=== PATIENT | female | born 1985 | race Caucasian/White ===

== ENCOUNTER 2022-06-19 08:55 | Inpatient (IN) | payer OTHER, SELFPAY ==
--- NOTE | 2022-06-12 12:17 | HP.PCM_ITS ---
History and Physical Date of Admission: 06/19/22 HPI: The patient is a 37 year old female presenting for pre-operative visit. She is scheduled for and bilateral salpingectomy, for 39 weeks and sterization request on 06/19/22. Procedure discussed along with risks, benefits and complications. Other alternatives discussed for management. Consent form signed? Yes. ? ? PAST MEDICAL HISTORY PAST MEDICAL HISTORY Diagnosis Date ? Abnormal glandular Papanicolaou smear of cervix ? ? Abn. Pap smear (cervix) ? Allergic rhinitis, cause unspecified ? ? Anemia ? ? Anesthesia complication 12/21/2011 ? Dysmenorrhea ? ? Esophageal reflux ? ? External hemorrhoids without mention of complication ? ? FRACTURE ? ? COLLARBONE, FALL AT 18 MONTHS ? History of pre-eclampsia in prior , currently ? ? Other specified disorder of gallbladder ? ? depression ? ? ? PAST SURGICAL HISTORY PAST SURGICAL HISTORY Procedure Laterality Date ? ADENOIDECTOMY PRIMARY <AGE 11 ? ? ? Adenoidectomy ? DELIVERY ONLY ? 04/14/11,08/02/12 ? , low transverse ? COLPOSCOPY CERVIX UPPER/ADJACENT VAGINA ? ? ? Colposcopy ? LAPAROSCOPY SURG CHOLECYSTECTOMY ? 01/03/08 ? MYRINGOTOMY ASPIR&/EUSTACHIAN TUBE NFLTJ ANES ? ? ? Myringotomy/tubes ? ? ? CURRENT MEDICATIONS Current Outpatient Medications Medication Sig Dispense Refill ? omeprazole (PRILOSEC) 20 mg capsule TAKE 1 CAPSULE BY MOUTH TWICE DAILY NEEDED 180 capsule 1 ? ferrous sulfate (IRON ORAL) Take by mouth. ? ? ? aspirin, enteric coated (ECOTRIN LOW STRENGTH) 81 mg EC tablet Take 1 tablet by mouth once daily. ? ? ? Qbrzbrsq-Vt-Yue-Fe-FA ( VITAMIN) tab Take 1 tablet by mouth. ? docusate sodium (COLACE ORAL) Take by mouth. ? ? ? No current facility-administered medications for this visit. ? ? ALLERGIES: Albuterol, Demerol [Meperidine (Pf)], and Seasonal [Other] ? PERSONAL HISTORY: SOCIAL HISTORY Social History ? Tobacco Use ? Smoking status: Never ? Smokeless tobacco: Never Vaping Use ? Vaping Use: Never used Substance Use Topics ? Alcohol use: Not Currently ? ? Comment: Occasionally ? Drug use: No ? FAMILY HISTORY: FAMILY HISTORY FAMILY HISTORY Problem Relation Age of Onset ? Lipids Mother ? ? Allergies Mother ? ? other (Sjoegren's) Mother ? ? Kidney Disease Mother ? ? Arthritis Mother ? ? other (anuerysm) Father ? ? 07/05, Cerebrel ? Allergies Brother ? ? Cancer Maternal Grandmother ? ? skin, colon, breast ? Stroke Maternal Grandmother ? ? Ischemic Heart Disease Maternal Grandfather ? ? Cancer Paternal Grandfather ? ? skin ? Hypertension Paternal Grandfather ? ? No Known Problems Son ? ? No Known Problems Son ? ? ? REVIEW OF SYMPTOMS: GENERAL: denies fevers or chills ENDOCRINOLOGY: has not been on steroids Cardiology : denies palpitations or chest pain Respiratory: denies SOB or cough Hematology: denies history of prolonged bleeding or easy bruising or VTE Allergy: Denies history of personal or family history of allergy to anesthesia ? PHYSICAL EXAMINATION: ? VITALS: Blood pressure 118/76, pulse 66, weight 181 lb (82.1 kg), last menstrual period 09/19/2021, SpO2 100 %, unknown if currently . ? GENERAL: The patient is well nourished, well hydrated in no acute distress. , The patient is oriented to time, place, and person. NECK: Supple. No lynphadenopathy, normal thyroid, no thyromegaly. LUNGS: Clear to auscultation bilaterally. no wheezes, rhonchi or rales HEART: Regular rate and rhythm, Normal heart sounds, and No murmurs or gallops ? IMPRESSION:Estimated Date of Delivery: 06/26/22 for repeat c/s and tubal ? PLAN: The risks/benefits/alternatives and personal involved for the planned c- section and tubal sterilization were reviewed with the patient. Her questions were answered to her satisfaction and she desires to proceed. Consent was signed. I reviewed with her postop instructions and expectations. ? ? I have reviewed and updated past medical and surgical history, medications and allergies
[2022-06-19] VITALS (17 sets, daily range): BP systolic 97–134; BP diastolic 53–88; PULSE 61–83; RESP 12–18; TEMP 36.3–37.2; O2SAT 95–98; BMI 31.8
[2022-06-19] MEDS: Lactated Ringers 1,000 ML 999 ML IV (09:30)
[2022-06-19] MEDS: Acetaminophen 500 MG Tablet 1000 MG PO ×3 (09:50→21:54)
[2022-06-19 09:56] LABS: Absolute Lymphocyte Count 1.91 X10^3/uL (0.83-4.51); Absolute Neutrophil Count 5.6 X10^3/uL (2.0-7.7); Basophil# 0.12 X10^3/uL; Basophil% 1.4 % (0-1); Eosinophil# 0.08 X10^3/uL; Eosinophils% 0.9 % (0-5); Hematocrit 33.6 % (37-47); Hemoglobin 11.1 g/dL (12.0-15.0); Lymphocyte # 1.91 X10^3/ul (0.83-4.51); Lymphocyte % 22.4 % (19-41); Mean Corpuscular Hgb 30.6 pg (27.0-32.0); Mean Corpuscular Volume 92.6 fL (81-99); Mean Platelet Vol. 10.9 fl (6.2-12.0); Monocyte# 0.59 X10^3/uL; Monocyte% 6.9 % (0-10); NRBC Flagged by Analyzer 0 % (0-5); Neutrophil # 5.56 X10^3/uL (2.7-7.7); Neutrophil % 65.1 % (47-70); Platelet Count 225 K/mm3 (150-450); RBC Distribution Width CV 12.9 % (11.6-14.6); RBC Distribution Width SD 43.5 fl (35.1-43.9); Red Blood Count 3.63 M/mm3 (4.2-5.4); White Blood Count 8.5 K/mm3 (4.4-11.0)
[2022-06-19] MEDS: Lactated Ringers 1,000 ML 150 ML IV ×2 (10:32→16:20)
[2022-06-19 10:36] LABS: Syphilis Antibodies Non-reactive
[2022-06-19] MEDS: Sodium Citrate/Citric Acid 30 ML UDC PO (11:21)
[2022-06-19] MEDS: Cefazolin 2 GM in 0.9% Normal Saline 100 ML IV (11:24)
--- NOTE | 2022-06-19 11:47 | EX.PCM.OBRPT ---
Assessment & Plan (1) 39 weeks gestation of : (2) Previous delivery affecting : (3) Sterilization: (4) Single live : Maternal Data Information Final BOB: [birth year] Gestational age: 39 Details Operative Information Date of Procedure: 06/19/22 Pre-Operative Diagnosis: previous c/s, sterilization request Post-Operative Diagnosis: same Classification: Scheduled Procedure Type: bilateral salpingectomy catering staff member #1: Charla Kamara catering staff member #2: Celia Carter MS3 Type of Anesthesia: Spinal Anesthesiologist: Jon Griffith Special Medications: duramorph Antibiotic Given: Ancef 2 grams IV x1 Drain: Everett to straight drain Estimated Blood Loss: 900 Fluids Replaced: 1999 Procedure Start Time: 11:53 Time of Delivery: 11:58 Findings Description of Procedure: Findings: Some filmy adhesions of omentum and peritoneum to anterior uterus and lower uterine segment. Some adhesions of the right fallopian tube to the pelvic sidewall. Normal left tube. Normal placenta with three-vessel cord. Clear amniotic fluid. The patient was taken to the operating room. She was prepped and draped in the dorsal supine position with a leftward tilt. A Pfannenstiel skin incision was made approximately 2 cm above the symphysis pubis and carried through to underlying layer fascia with the scalpel. The fascia was incised incised in the midline and extended laterally with the [place] scissors. The fascia was dissected off the rectus muscles with blunt and sharp dissection. There was a significant amount of scar tissue and firmness to the tissue. So I did have to dissect the rectus muscles off the fascia and actually had to do this a second time because I did not have enough stretch. I had to get through some adhesions to get to the uterus. The rectus muscles were in the midline and the peritoneum was entered bluntly. The peritoneal incision was stretched and the bladder blade was placed. I did use Metzenbaum scissors to take bladder flap down because there were some adhesions to the pelvic sidewall and anterior abdominal wall of the bladder flap. The uterine incision was made in a low transverse fashion with the scalpel and extended superiorly and inferiorly with blunt dissection. The amniotic membranes were ruptured bluntly and clear amniotic fluid returned. The 's head was brought to the incision in the flexed position and delivered without difficulty. The remainder of the infant was delivered with gentle traction and fundal pressure in the standard fashion. The mouth and nares were bulb suctioned. The cord was clamped and cut as the was stimulated. Cord clamping was delayed. The infant was handed off to the waiting nursing staff. The placenta was delivered with fundal massage and gentle traction in the standard fashion. The uterus was exteriorized and cleared of all clots and debris. The cervix was dilated with a ring forcep. The uterine incision was closed with #1 Vicryl in a running locked fashion. There is a large bleeding vessel in the left lateral incision. The uterine artery had torn with delivery of the head. Several syqlky-hq-bdygr oh #1 Vicryl sutures were placed in the area. However hemostasis was still not assured. I had to go all the way through the uterus and around the vessel through the broad ligament twice and tie it down to obtain hemostasis. Care was taken to make sure that the bladder was well down. I checked both the front and the back of the uterus to make sure there were no hematomas and that the site was hemostatic. There were several bleeding sinuses in the midline that required rrmnop-fz-zgeff sutures as well. The incision was examined and was found to be hemostatic. Attention was then turned to the tube. Both tubes are followed out to the fimbriated end. The large vessels were held down with gentle traction while the antimesenteric portions were clamped sealed and transected. The cornual end insertion of the tube was clamped sealed and transected. This was performed on both sides of the pedicles were hemostatic. However when I replaced the uterus into the peritoneal cavity from the traction on the blood vessels on the right there was some bleeding of the utero-ovarian vessels. The LigaSure device was used to clamp Enseal these vessels to obtain hemostasis. The uterus was placed back into the peritoneal cavity and hemostasis was again confirmed. There was a small defect in the peritoneum on the left side of the posterior uterus. Some Michelle was placed over this as it was near the broad ligament and there is no active bleeding and I did not want to place any sutures in that area. Hemostasis was noted after wrist and pressure. Some Michelle was also placed over the uterine incision. Where some of the adhesions had been taken down there is a small amount of oozing and some Michelle was placed over this. In the left lower quadrant and a bladder flap some fibrillar was placed in this area. The rectus muscles were examined and any bleeding was Bovie cauterized. Some Michelle was placed over this layer as well. The parietal peritoneum and rectus muscles were closed en bloc with an 0 Vicryl running suture. The rectus fascia was examined and any bleeding was Bovie cauterized and the rectus fascia was closed with 1 Vicryl suture in a running standard fashion. The subcutaneous tissue was examining and any bleeding was Bovie cauterized. The subcutaneous tissue was reapproximated with 3-0 Vicryl suture. The skin was closed in a subcuticular fashion by the MEDICAL INSURANCE CLERK with me present in the labor and delivery suite. I performed the remainder of the procedure with assistance. All sponge, lap, and needle counts were correct. The patient was taken to her room for recovery in a stable condition. Presentation: Positive for Vertex Amniotic Membrane Rupture Type: Artificial Amniotic Fluid Description: Clear Placental Delivery Description: Expressed Placenta Disposition: [facility] Specimen(s) Sent to Pathology: Bilateral fallopian tubes Cord Vessel Description: 3 Vessels Cord Entanglement: None Infant A Gender: Male (1 minute): 7 (5 minute): 9 Delayed Cord Clamping: Yes Complications Complications: none
--- NOTE | 2022-06-19 12:00 | FALS_PTH ---
PATIENT: NATHANIEL ZAVALA LOC: [facility] U#:[id number] AGE/SX: 37/F ROOM: WP003 RE06/19/[address]: Dr. Imani Mcclellan MD : 1985 BED: 1 DIS: 06/21/2022 SPEC #: [id number] RECD: 06/19/22 13:55 STATUS: KIKO DAMEON #: [id number] BRYON: 06/19/22 12:[address]: Imani Mcclellan DEPT: SURGICAL PATHOLOGY RECD BY: Sherry Galindo Tissues: Fallopian tube Procedures: Surgery Specimen Level II HEADER OPERATION: Tubal ligation PRE-OP DIAGNOSIS: Sterilization TISSUE SUBMITTED: Fallopian tubes MICROSCOPIC DIAGNOSIS Bilateral fallopian tubes, salpingectomy: Bilateral fallopian tubes, no pathologic diagnosis. UZIEL:amelia 06/23/2022 MICROSCOPIC DESCRIPTION Slides are reviewed. GROSS DESCRIPTION Received in fixative is one container labeled with the patient's name and designated bilateral fallopian tubes, stitch left. The specimen consists of bilateral fallopian tubes. The right fallopian tube measures 7.0 cm in length and 1.0 to 1.5 cm in diameter. The fimbrial end is not identified. The left fallopian tube measures 9.0 cm in length and 0.5 to 1.0 cm in diameter. The fimbrial end is identified. Sections of both fallopian tubes reveal unremarkable cut surfaces. Porcelain Enamel Repairer sections are submitted in two cassettes as follows: 1 ? right fallopian tube, 2 ? left fallopian tube. / UZIEL:amelia 06/22/2022 TC:4 CPT: 74492 x2
[2022-06-19] MEDS: Oxytocin 15 Units/NS 250ml 15 UNITS/250 ML IV.SOLN 83 UNITS IV (13:30)
[2022-06-19] MEDS: Ketorolac 30 MG/ML Syringe IV ×2 (13:31→19:35)
[2022-06-19] MEDS: Nalbuphine 10 MG/ML Ampul 5 MG IV (14:43)
[2022-06-19] MEDS: 0.9% Saline Lock 10 ML Syringe IV (14:44)
[2022-06-19] MEDS: Cefazolin 1 GM/50 ML BAG IV (16:20)
[2022-06-19] MEDS: Lactated Ringers 1,000 ML 100 ML IV (16:36)
[2022-06-19 17:28] LABS: Hematocrit 26.3 % (37-47); Hemoglobin 8.7 g/dL (12.0-15.0); Mean Corp Hgb Conc 33.1 g/dL (32-36); Mean Corpuscular Hgb 30.7 pg (27.0-32.0); Mean Corpuscular Volume 92.9 fL (81-99); Mean Platelet Vol. 10.6 fl (6.2-12.0); Platelet Count 185 K/mm3 (150-450); RBC Distribution Width CV 12.8 % (11.6-14.6); RBC Distribution Width SD 43.6 fl (35.1-43.9); Red Blood Count 2.83 M/mm3 (4.2-5.4); White Blood Count 10.2 K/mm3 (4.4-11.0)
--- NOTE | 2022-06-19 22:01 | NURSING ---
Pt stood at side of bed and tolerated well. When pt attempted to walk she felt dizzy. Pt sat back on bed and her dizziness went away.
[2022-06-20 00:02] VITALS: BP 115/66; PULSE 79; RESP 16; TEMP 36.8; O2SAT 95
[2022-06-20] MEDS: Cefazolin 1 GM/50 ML BAG IV (00:08)
[2022-06-20] MEDS: Ketorolac 30 MG/ML Syringe IV ×2 (01:11→07:54)
[2022-06-20] MEDS: Acetaminophen 500 MG Tablet 1000 MG PO ×4 (04:19→21:45)
[2022-06-20 04:21] VITALS: BP 102/59; PULSE 92; RESP 18; TEMP 36.7; O2SAT 94
--- NOTE | 2022-06-20 05:02 | NURSING ---
pt ambulated to bathroom, sat on the toilet, and ambulated back to bed with minimal to no assistance. Pt tolerated well.
[2022-06-20 05:05] LABS: Hematocrit 27.5 % (37-47); Hemoglobin 9.2 g/dL (12.0-15.0); Mean Corp Hgb Conc 33.5 g/dL (32-36); Mean Corpuscular Hgb 31.3 pg (27.0-32.0); Mean Corpuscular Volume 93.5 fL (81-99); Mean Platelet Vol. 10.5 fl (6.2-12.0); Platelet Count 193 K/mm3 (150-450); RBC Distribution Width SD 44.3 fl (35.1-43.9); Red Blood Count 2.94 M/mm3 (4.2-5.4)
--- NOTE | 2022-06-20 07:18 | PCM.PN.OB ---
Subjective Subjective Patient seen at bedside. infant. Everett cath removed. She has ambulated to bathroom. Denies any dizziness, headache, SOB or CP. Pain is controlled at this time. Objective Data Objective Data Vital Signs: Vital Signs Temp Pulse Resp BP Pulse Ox O2 Del Method 98.1 F 92 18 102/59 L 94 Room Air 06/20/22 04:21 06/20/22 04:21 06/20/22 04:21 06/20/22 04:21 06/20/22 04:21 06/20/22 04:21 Oxygen Delivery Method Room Air Weight: 185 lb 3.013 oz Body Mass Index (BMI) 31.8 Intake & Output: Intake and Output for Last 24 Hours 06/18/22 06/19/22 06/20/22 23:59 23:59 23:59 Intake Total 1670 / 1670 850 / 850 Output Total 1600 / 1600 875 / 875 Balance 70 / 70 -25 / -25 Lab / Micro Data Result Diagrams: 06/20/22 04:52 Labs: Laboratory Results - last 24 hr 06/19/22 09:30: WBC 8.5, RBC 3.63 L, Hgb 11.1 L, Hct 33.6 L, MCV 92.6, MCH 30.6, MCHC 33.0, RDW Std Deviation 43.5, RDW Coeff of Elisa 12.9, Plt Count 225, MPV 10.9, Immature Gran % (Auto) 3.300 H, Neut % (Auto) 65.1, Lymph % (Auto) 22.4, [place] % (Auto) 6.9, Eos % (Auto) 0.9, Baso % (Auto) 1.4 H, Absolute Neuts (auto) 5.6, Absolute Lymphs (auto) 1.91, Nucleated RBC % 0 06/19/22 09:30: Blood Type A POSITIVE, Antibody Screen NEGATIVE 06/19/22 09:30: Syphilis Total Ab Non-reactive 06/19/22 17:10: WBC 10.2, RBC 2.83 L, Hgb 8.7 L, Hct 26.3 L, MCV 92.9, MCH 30.7, MCHC 33.1, RDW Std Deviation 43.6, RDW Coeff of Elisa 12.8, Plt Count 185, MPV 10.6 06/20/22 04:52: WBC 10.0, RBC 2.94 L, Hgb 9.2 L, Hct 27.5 L, MCV 93.5, MCH 31.3, MCHC 33.5, RDW Std Deviation 44.3 H, RDW Coeff of Elisa 13.0, Plt Count 193, MPV 10.5 ROS Eyes Eyes: Denies blurry vision, change in vision or spots in vision ENT HEENT: Denies dizziness or headache(s) Cardiovascular Cardiovascular: Denies abdominal pain, chest pain or dyspnea Respiratory/Chest Respiratory/Chest: Denies cough, dyspnea, shortness of breath at rest or shortness of breath with exertion Gastrointestinal Gastrointestinal: Denies abdominal pain, diarrhea or vomiting Genitourinary Genitourinary: Denies change in urinary stream, difficulty urinating or dysuria Musculoskeletal Musculoskeletal: Reports none Integumentary Integumentary: Denies rash Neurologic Neurologic: Denies dizziness, headache(s), memory loss or weakness Physical Exam Narrative Dressing is dry and intact Const alert and no apparent distress General Appearance: cooperative and comfortable Exam Limitations: no limitations HEENT normocephalic Eyes General Eye: normal appearance of both eyes Neck full ROM General: normal visual inspection Chest Chest: symmetrical chest wall rise Resp normal respiratory effort and normal air movement Effort and Inspection: symmetric chest movement Auscultation: clear to auscultation bilaterally Cardio regular rate and regular rhythm GI Palpation: tender other (Tender with light palpation. Fundus 1 below U) Back/Spine normal ROM Extremity full ROM and no calf tenderness General Extremity: normal exam except as noted Skin no rashes or lesions noted Neuro CN's II-XII intact bilaterally Psych mental status grossly normal Assessment & Plan (1) Single live : (2) Previous delivery affecting : (3) Care and examination of lactating mother: PLAN: Plan PO Day 1 Repeat C/S Pain control Routine care support HGB- up to 9.2 from 8.7- asymptomatic Increase ambulation Anticipate discharge home tomorrow
[2022-06-20 07:46] VITALS: BP 109/69; PULSE 89; RESP 16; TEMP 36.8; O2SAT 95
[2022-06-20] MEDS: 0.9% Saline Lock 10 ML Syringe IV ×2 (07:54→21:47)
[2022-06-20] MEDS: Senna/Docusate Sodium 1 Tablet PO (10:28)
[2022-06-20] MEDS: Ibuprofen 600 MG Tablet PO ×3 (12:13→23:50)
[2022-06-20] MEDS: oxyCODONE 5 MG Tablet PO ×3 (12:59→21:46)
--- NOTE | 2022-06-20 13:13 | CASEMGMT ---
Addendum entered by Lolis Booker 06/20/22 13:45: Please note: MOB and FOB guardians of all three children, not just two as in note below. ROSIE Maldonado Original Note: Social Work Assessment Labor and Delivery Unit Date/Time of Referral: 06/20/2022 11:25am Referred by: Reyna Christie Date/Time of Intervention: 06/20/22 12:50pm Reason for referral: history of PPD, no meds, doing well History obtained from: MOB, FOB Household composition: MOB, FOB, two sons ages 11(Jose Armando) and 10(Pio) and now new baby Delmar. MOB and FOB have been together for 14 years Parent/Guardian Status: MOB and FOB are guardians of both children Medical History: MOB: previous . Baby: Born 06/19/2023 at 11:58am, via . Apgars 7 and 8 at one and five minutes, 3010g, penile torsion, circumcision deferred to urologist Educational Status: MOB--Masters in education. FOB--also degree in education Financial Status, no concerns. 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 FOB teaches science to 6th and 8th graders. Infant Supplies: They have all needed supplies including diapers, wipes, crib, clothing, car seat, bottles, formula. MOB plans to breast feed, has bottles if needed. Childcare/Caregivers: Baby will go to a saddle stitching machine operator when MOB returns to work Transportation: They have two vehicles Programs/Agencies involved: None Children's services/Legal issues: None Behavioral Health Issues: Substance abuse issues: MOB and FOB report none. No tox screens on MOB or baby on this admission. Mental health: FOB reports none. MOB reports after first feeling a little down. Other than this no reports of anxiety or depression. She has not been in counseling. Safety: No concerns Family/Social Stressors: None Support systems: Family and friends. Depression and Anxiety/Shaken Baby/Safe Sleeping/Crisis numbers/Mental Health provider list/[facility]/Help Me Grow: Information given on all of these topics and reviewed. SW encourage MOB to speak to her OB should she have any symptoms of PPD. MOB states understanding. Assessment: MOB and FOB spoke w/SW openly. FOB holding baby, walking around the room, soothing the baby. FOB seems appropriate in care of child. Both MOB and FOB answered all questions, appropriate. Plan: Baby home w/MOB and FOB at discharge. No further social service needs anticipated at this time. ROSIE Maldonado
[2022-06-20 14:17] VITALS: BP 111/72; PULSE 70; RESP 16; TEMP 36.7; O2SAT 95
[2022-06-20 20:05] VITALS: BP 114/67; PULSE 88; RESP 16; TEMP 36.3; O2SAT 95
[2022-06-21] MEDS: oxyCODONE 5 MG Tablet PO ×3 (01:52→14:02)
[2022-06-21 01:58] VITALS: BP 118/70; PULSE 74; RESP 18; TEMP 36.6; O2SAT 94
[2022-06-21] MEDS: Acetaminophen 500 MG Tablet 1000 MG PO ×2 (04:57→10:00)
[2022-06-21] MEDS: Ibuprofen 600 MG Tablet PO ×2 (06:32→11:54)
[2022-06-21 06:49] LABS: Hematocrit 28.4 % (37-47); Hemoglobin 9.2 g/dL (12.0-15.0); Mean Corp Hgb Conc 32.4 g/dL (32-36); Mean Corpuscular Volume 95.6 fL (81-99); Mean Platelet Vol. 10.1 fl (6.2-12.0); Platelet Count 225 K/mm3 (150-450); RBC Distribution Width CV 13.3 % (11.6-14.6); RBC Distribution Width SD 46.5 fl (35.1-43.9); Red Blood Count 2.97 M/mm3 (4.2-5.4); White Blood Count 12.9 K/mm3 (4.4-11.0)
--- NOTE | 2022-06-21 07:12 | DS.PCM_ITS ---
Providers Date of Admission: 06/19/22 Reason For Visit: REPEAT C SECTION Diagnosis Discharge Diagnosis (1) Single live : Status: Acute Code(s): Z37.0 - Single live (2) Previous delivery affecting : Status: Acute Code(s): O34.219 - Maternal care for unspecified type scar from previous deliver y (3) Care and examination of lactating mother: Status: Acute Code(s): Z39.1 - Encounter for care and examination of lactating mother Medications at Discharge Home Medications docusate sodium 100 mg capsule (Colace) 200 mg PO DAILY constipation 06/19/22 ferrous sulfate 325 mg (65 mg iron) tablet 325 mg PO QODAY anemia 06/19/22 vits,calcium no.78-iron fumarate-folic acid 29 mg-1 mg tablet (Prenatabs FA) 1 tab PO TID 06/19/22 oxycodone 5 mg tablet 5 - 10 mg PO Q4H PRN PRN Pain Score 4-10 5 days #10 tabs 06/21/22 Hospital Course Operations section Summary of Care Provided Hospital Course: Patient was for a repeat section. Hospital course was uneventful. Physical Exam Narrative Patient seen at bedside. Pain controlled. Denies any headache, vision changes, SOB or CP. Lochia decreasing. Passing flatus. Desires discharge home. Const alert and no apparent distress General Appearance: cooperative and comfortable Exam Limitations: no limitations HEENT normocephalic Eyes General Eye: normal appearance of both eyes Neck full ROM General: normal visual inspection Chest Chest: symmetrical chest wall rise Resp normal respiratory effort and normal air movement Effort and Inspection: symmetric chest movement Auscultation: clear to auscultation bilaterally Cardio regular rate and regular rhythm GI normal to inspection, nondistended, normoactive bowel sounds Back/Spine normal ROM Extremity full ROM and no calf tenderness General Extremity: normal exam except as noted Skin no rashes or lesions noted Neuro CN's II-XII intact bilaterally Psych mental status grossly normal Weight / BMI Weight Weight: 185 lb 3.013 oz Body Mass Index (BMI) 31.8 ABG / Lab / Microbiology Data Result Diagrams: 06/21/22 06:38 Laboratory: Laboratory Results - last 24 hr 06/21/22 06:38: WBC 12.9 H, RBC 2.97 L, Hgb 9.2 L, Hct 28.4 L, MCV 95.6, MCH 31.0, MCHC 32.4, RDW Std Deviation 46.5 H, RDW Coeff of Elisa 13.3, Plt Count 225, MPV 10.1 D/C Instructions Discharge Diet: No restrictions May resume sexual activity in: 6-8 weeks Weight Bearing Status: Weight bearing as tolerated Call your doctor if your incision/area has: Continuous Slow Oozing, Increased Pain/ Swelling, Increased Redness and Swelling at the incision site Call your doctor if you observe: Fever of 101 or Higher, Inability to urinate, Using more than 1 pad per hour, Shortness of breath, Dizziness, Calf discomfort and Uncontrolled pain Change Dressing in: leave in place till F/U Please Follow Up With: Imani Mcclellan MD When: 1 week for incision check Meaningful Use Info Meaningful Use Diagnoses (Choose all that apply): None applicable Discharge Plan Admission Admit Date/Time: 06/19/22 08:55 Primary Reason for Your Visit: Repeat cesaran section Attending Provider: Imani Mcclellan Discharge Orders/Prescriptions Prescriptions: New oxycodone 5 mg Tablet 5 - 10 mg PO Q4H PRN PRN (Reason: Pain Score 4-10) 5 Days Qty: 10 0RF Continued ferrous sulfate 325 mg (65 mg iron) Tablet 325 mg PO QODAY docusate sodium [Colace] 100 mg Capsule 200 mg PO DAILY Prenatabs FA 29-1 mg Tablet 1 tab PO TID Discontinued aspirin [Baby Aspirin] 81 mg Tablet,Chewable 81 mg PO DAILY omeprazole 20 mg Tablet,Delayed Release (Dr/Ec) 20 mg PO BID Disposition Disposition (needs filled in before D/C Order can be placed): Home, Self Care
[2022-06-21] MEDS: Senna/Docusate Sodium 1 Tablet PO (09:59)
[2022-06-21 10:25] VITALS: BP 112/76; PULSE 75; RESP 16; TEMP 36.4; O2SAT 97
[2022-06-24 05:50] LABS: Pathology Specimen OB SEE PATHOLOGY REPORT
--- NOTE | 2022-06-26 07:45 | NURSING ---
06-22-22: Follow up questions asked by Joey Gonzalez APRN at [facility] follow up visit. Pt. had a but was doing well. No issues with BP and denies s+s. No concerns since discharge. Loved the staff and Dr. Mcclellan.
--- NOTE | 2022-06-27 16:28 | NURSING ---
Emily saw mother on follow up visit, doing well, loved Dr. Mcclellan, no symptoms and no concerns.
== END 2022-06-21 14:30 | disposition home or self-care (01) | DRG 785 ==
PROVIDERS: Admitting Provider Obstetrics & Gynecology; Visit Provider Obstetrics & Gynecology
PROC: 0UT70ZZ Resection of Bilateral Fallopian Tubes, Open Approach (ICD-10-PCS; CPT 59514; principal; 2022-06-19 11:15)
DX: O34.211 Maternal care for low transverse scar from previous cesarean delivery (principal); K21.9 Gastro-esophageal reflux disease without esophagitis; O99.62 Diseases of the digestive system complicating childbirth; Z30.2 Encounter for sterilization; Z37.0 Single live birth; Z3A.39 39 weeks gestation of pregnancy; Z87.59 Personal history of other complications of pregnancy, childbirth and the puerperium; Z79.82 Long term (current) use of aspirin; Z79.899 Other long term (current) drug therapy
CPT/HCPCS: 59050; 85025; 85027; 86780; 86850; 86900; 86901; 88302; 99221; 99252; J7120; A4216; G0378; G0463; J2405